=== PATIENT | female | born 1980 | race Caucasian/White ===

== ENCOUNTER 2020-08-11 15:21 | Emergency (ER) | payer MEDICAID ==
[~2020-08-11] VITALS: Ht 177.8 cm; Wt 170.4 kg
[~2020-08-11 15:21] MED LIST: PANT-47 PO; PHEN-716 PO
[2020-08-11] MEDS ORDERED: acetaminophen 325mg tablet PO ONE ×2 (15:35→15:50)
[2020-08-11] MEDS ORDERED: normal saline 1000ml 1,000 ML IV ONE (15:50)
[2020-08-11 16:08] LABS: BASOPHILS # (AUTO) 0.1 X10'3 (0-0.2); BASOPHILS % (AUTO) 0.4 % (0-1); EOSINOPHILS # (AUTO) 0.1 X10'3 (0-0.9); EOSINOPHILS % (AUTO) 0.6 % (0-6); HEMOGLOBIN 15.2 g/dl (12.0-16.0); LYMPHOCYTES % (AUTO) 5.4 % (21-51); MEAN CORPUSCULAR HEMOGLOBIN 30.7 PG (27.0-31.0); MEAN CORPUSCULAR HGB CONC 33.8 g/dL (33.0-36.5); MEAN CORPUSCULAR VOLUME 90.8 FL (78-98); MEAN PLATELET VOLUME 9.3 FL (7.4-10.4); MONOCYTES # (AUTO) 1.1 X10'3 (0-0.9); MONOCYTES % (AUTO) 5.7 % (2-12); NEUTROPHILS # (AUTO) 16.5 X10'3 (1.8-7.7); NEUTROPHILS % (AUTO) 87.9 % (42-75); PLATELET COUNT 275 X10'3 (140-440); RED BLOOD COUNT 4.96 X10'6 (4.20-5.60); RED CELL DISTRIBUTION WIDTH 14.1 % (11.5-14.5); WHITE BLOOD COUNT 18.8 X10'3 (4.5-11.0)
[2020-08-11 16:18] LABS: ALBUMIN 3.6 G/DL (3.4-5.0); ANION GAP 11 (8-16); BLOOD UREA NITROGEN 18 MG/DL (7-18); BUN/CREATININE RATIO 23.4 (6.6-38.0); CALCIUM 9.5 MG/DL (8.5-10.1); CHLORIDE 98 MMOL/L (99-107); CREATININE 0.77 MG/DL (0.40-0.90); GLUCOSE 121 MG/DL (70-104); POTASSIUM 4.2 MMOL/L (3.5-5.1); SODIUM 136 MMOL/L (135-145); TOTAL CARBON DIOXIDE 27.5 MMOL/L (24-32); eGFR 83 ML/MIN
--- NOTE | 2020-08-11 16:29 | NUR ---
[place] [facility] [place], desaturating to 88 w/ lightheadedness. O2 returned to mid 90's whil on commode, but dropped again @ time of transfer to [facility]. O2 recovered & remains stable @ 95% RA. [facility]
[2020-08-11] MEDS ORDERED: amoxicillin 250mg capsule PO ONE (17:45)
[2020-08-11 17:49] VITALS: BP 142/77
[2020-08-11] MEDS ORDERED: AMOX-101 PO (17:52)
== END 2020-08-11 18:08 | disposition home or self-care (01) ==
LOC: ER 15:22
DX: J02.0 Streptococcal pharyngitis (principal); R50.9 Fever, unspecified; R53.83 Other fatigue; Z20.828 Contact with and (suspected) exposure to other viral communicable diseases; G43.909 Migraine, unspecified, not intractable, without status migrainosus; Z87.440 Personal history of urinary (tract) infections; Z85.9 Personal history of malignant neoplasm, unspecified; Z88.6 Allergy status to analgesic agent; Z79.2 Long term (current) use of antibiotics; Z79.899 Other long term (current) drug therapy
CPT/HCPCS: 36415; 71045; 80048; 83605; 85025; 87040; 87635; 87880; 93005; 96360; 99285; C9803; J7030

== ENCOUNTER 2020-08-20 06:03 | Emergency (ER) | payer MEDICAID ==
[~2020-08-20] VITALS: Ht 177.8 cm; Wt 168.2 kg
[~2020-08-20 06:03] MED LIST changes: +AMOX-101 PO
[2020-08-20 06:07] VITALS: BP 131/66
[2020-08-20] MEDS ORDERED: ACET-3068 PO (06:39)
== END 2020-08-20 07:03 | disposition home or self-care (01) ==
LOC: ER 06:03
DX: S59.902A Unspecified injury of left elbow, initial encounter (principal); G43.909 Migraine, unspecified, not intractable, without status migrainosus; F17.200 Nicotine dependence, unspecified, uncomplicated; F12.90 Cannabis use, unspecified, uncomplicated; Z87.440 Personal history of urinary (tract) infections; Z85.9 Personal history of malignant neoplasm, unspecified; Z88.6 Allergy status to analgesic agent; Z79.2 Long term (current) use of antibiotics; Z79.899 Other long term (current) drug therapy; X58.XXXA Exposure to other specified factors, initial encounter; Y93.89 Activity, other specified; Y92.89 Other specified places as the place of occurrence of the external cause; Y99.8 Other external cause status
CPT/HCPCS: 99283

== ENCOUNTER 2021-07-22 10:53 | Emergency (ER) | payer MEDICAID ==
[~2021-07-22] VITALS: Ht 175.3 cm; Wt 177.3 kg
[~2021-07-22 10:53] MED LIST changes: -AMOX-101 PO
[2021-07-22] MEDS ORDERED: ALBU8HFA PO (11:12)
[2021-07-22] MEDS ORDERED: BENZ-16 PO (11:12)
[2021-07-22 11:18] VITALS: BP 136/70
== END 2021-07-22 11:31 | disposition home or self-care (01) ==
LOC: ER 10:54
DX: M79.10 Myalgia, unspecified site (principal); R09.81 Nasal congestion; G43.909 Migraine, unspecified, not intractable, without status migrainosus; F12.10 Cannabis abuse, uncomplicated; Z88.6 Allergy status to analgesic agent; Z79.899 Other long term (current) drug therapy
CPT/HCPCS: 99283

== ENCOUNTER 2021-08-17 20:34 | Emergency (ER) | payer MEDICAID ==
[~2021-08-17] VITALS: Ht 175.3 cm; Wt 177.3 kg
[~2021-08-17 20:34] MED LIST changes: +ALBU8HFA PO
[2021-08-17 21:20] LABS: URINE HCG NEGATIVE (NEG)
[2021-08-17 21:35] LABS: BASOPHILS # (AUTO) 0.1 X10'3 (0-0.2); BASOPHILS % (AUTO) 0.4 % (0-1); EOSINOPHILS # (AUTO) 0.3 X10'3 (0-0.9); EOSINOPHILS % (AUTO) 1.8 % (0-6); HEMATOCRIT 42.1 % (35.0-45.0); HEMOGLOBIN 13.7 g/dl (12.0-16.0); LYMPHOCYTES # (AUTO) 1.9 X10'3 (1.1-4.8); LYMPHOCYTES % (AUTO) 12.5 % (21-51); MEAN CORPUSCULAR HEMOGLOBIN 30.1 PG (27.0-31.0); MEAN CORPUSCULAR HGB CONC 32.6 g/dL (33.0-36.5); MEAN CORPUSCULAR VOLUME 92.2 FL (78-98); MEAN PLATELET VOLUME 8.7 FL (7.4-10.4); MONOCYTES # (AUTO) 0.8 X10'3 (0-0.9); MONOCYTES % (AUTO) 5.4 % (2-12); NEUTROPHILS # (AUTO) 12.3 X10'3 (1.8-7.7); NEUTROPHILS % (AUTO) 79.9 % (42-75); PLATELET COUNT 317 X10'3 (140-440); RED BLOOD COUNT 4.57 X10'6 (4.20-5.60); RED CELL DISTRIBUTION WIDTH 14.3 % (11.5-14.5); WHITE BLOOD COUNT 15.4 X10'3 (4.5-11.0)
[2021-08-17 21:40] LABS: CLARITY,URINE SLIGHTLY CLOUDY (Clear); COLOR,URINE YELLOW (Yellow); GLUCOSE, URINE NEGATIVE (Neg); KETONES,URINE NEGATIVE (Neg); PROTEIN,URINE TRACE mg/dl (Neg); UA COLLECTION TYPE CLN CATCH MIDSTREAM
[2021-08-17 21:41] LABS: LEUKOCYTE ESTERASE ,URINE NEGATIVE (Neg); NITRITES, URINE NEGATIVE (Neg); OCCULT BLOOD,URINE LARGE (Neg); UROBILINOGEN,URINE 0.2 E.U/dL (0.2-1.0)
[2021-08-17 21:48] LABS: BACTERIA,URINE 1+ /HPF (Neg); MUCUS STRANDS FEW /LPF (Neg); SQUAMOUS EPITHELIAL CELL,UR FEW /LPF (FEW)
[2021-08-17 21:48] LABS: ALANINE AMINOTRANSFERASE 26 U/L (12-78); ALBUMIN 3.2 G/DL (3.4-5.0); ALBUMIN/GLOBULIN RATIO 0.7 (1.1-1.5); ALKALINE PHOSPHATASE 130 IU/L (46-116); ANION GAP 14 (8-16); ASPARTATE AMINO TRANSFERASE 15 U/L (10-37); BILIRUBIN,TOTAL 0.4 MG/DL (0.1-1.0); BLOOD UREA NITROGEN 12 MG/DL (7-18); BUN/CREATININE RATIO 17.1 (6.6-38.0); CALCIUM 9.2 MG/DL (8.5-10.1); CHLORIDE 101 MMOL/L (99-107); GLUCOSE 162 MG/DL (70-104); LIPASE 149 U/L (73-393); POTASSIUM 4.3 MMOL/L (3.5-5.1); SODIUM 140 MMOL/L (135-145); TOTAL CARBON DIOXIDE 24.8 MMOL/L (24-32); eGFR > 90 ML/MIN
[2021-08-17] MEDS ORDERED: ondansetron 4mg rapidly disintigrating tab PO ONE (22:25)
[2021-08-17] MEDS ORDERED: ciprofloxacin 250mg tablet PO ONE (22:25)
[2021-08-17] MEDS ORDERED: CefTRIAXone 1000mg IM Kit (w/lidocaine diluent) IM ONE (22:25)
[2021-08-17] MEDS ORDERED: oxyCODONE IR 5mg (immed. release) tablet PO ONE (22:25)
[2021-08-17] MEDS ORDERED: HYDR-3965 PO (22:26)
[2021-08-17] MEDS ORDERED: PHEN-824 PO (22:26)
[2021-08-17] MEDS ORDERED: CIPR750T14 PO (22:26)
[2021-08-17] MEDS ORDERED: phenazopyridine 100mg tablet PO ONE (22:30)
[2021-08-17 22:55] VITALS: BP 128/75
== END 2021-08-17 22:59 | disposition home or self-care (01) ==
LOC: ER 20:35
DX: N39.0 Urinary tract infection, site not specified (principal); R11.0 Nausea; R10.9 Unspecified abdominal pain; G43.909 Migraine, unspecified, not intractable, without status migrainosus; F12.90 Cannabis use, unspecified, uncomplicated; Z87.440 Personal history of urinary (tract) infections; Z85.9 Personal history of malignant neoplasm, unspecified; Z90.89 Acquired absence of other organs; Z88.6 Allergy status to analgesic agent; Z79.2 Long term (current) use of antibiotics; Z79.899 Other long term (current) drug therapy
CPT/HCPCS: 36415; 80053; 81001; 81025; 83690; 85025; 87088; 96372; 99284; J0696

== ENCOUNTER 2021-09-02 20:48 | Emergency (ER) | payer MEDICAID ==
[~2021-09-02] VITALS: Ht 175.3 cm; Wt 191.2 kg
[~2021-09-02 20:48] MED LIST changes: -ALBU8HFA PO; +HYDR-3965 PO; +PHEN-824 PO
[2021-09-02 21:07] VITALS: BP 135/72
[2021-09-02] MEDS ORDERED: ketorolac trometh. 30mg/ml inj. IM ONE (22:10)
== END 2021-09-02 23:16 | disposition home or self-care (01) ==
LOC: ER 20:49
DX: M25.522 Pain in left elbow (principal); G43.909 Migraine, unspecified, not intractable, without status migrainosus; G47.30 Sleep apnea, unspecified; F12.90 Cannabis use, unspecified, uncomplicated; Z87.440 Personal history of urinary (tract) infections; Z85.9 Personal history of malignant neoplasm, unspecified; Z90.49 Acquired absence of other specified parts of digestive tract; Z79.2 Long term (current) use of antibiotics; Z79.899 Other long term (current) drug therapy; Z88.8 Allergy status to other drugs, medicaments and biological substances
CPT/HCPCS: 96372; 99283; J1885